=== PATIENT | male | born 1935 | race Caucasian/White ===

== ENCOUNTER 2017-12-22 08:35 | Day surgery (SDC) | payer MEDICARE ==
[~2017-12-22 08:35] MED LIST: Acetaminophen TAB* 325 MG PO PRN; Buffered Lidocaine 0.9% SYRIN* 5 ML/SYR SYRINGE INTRADERM ONE; Midazolam* 1 MG/ML 2 ML VIAL (2 MG) ONE
[2017-12-22 11:36] VITALS: BP 123/70
[2017-12-22] MEDS ORDERED: Povidone Iodine 5% OPTH* 30 ML BTL ONE (11:56)
[2017-12-22] MEDS ORDERED: Ketorolac 0.5% OPHTH (NF) 0.5 % 5 ML BTL ONE (11:56)
[2017-12-22] MEDS ORDERED: Phenylephrine 2.5% OPTH.SOL* 2 ML BTL ONE (11:56)
[2017-12-22] MEDS ORDERED: Lidocaine 2% EPI 1:200000 MPF* 20 ML VIAL ONE (11:56)
[2017-12-22] MEDS ORDERED: acetaZOLAMIDE TAB* 250 MG ONE (11:56)
[2017-12-22] MEDS ORDERED: Lidocaine 1% MPF* 2 ML VIAL ONE (11:56)
[2017-12-22] MEDS ORDERED: Proparacaine 0.5% OPHTH.SOL* 15 ML BTL ONE (11:56)
[2017-12-22] MEDS ORDERED: Neomycin/Polymy/Dex OPTH.SUSP* MAXITROL 0.1% 5 ML ONE (11:56)
[2017-12-22] MEDS ORDERED: Cyclopentolate 1% OPTH.SOL* 2 ML BTL ONE (11:56)
--- NOTE | 2017-12-22 13:11 | OP ---
DATE OF OPERATION: 12/22/2017 - [facility] DATE OF : 1935. SURGEON: Alexis Ferrera M.D. PREOPERATIVE DIAGNOSIS: Cataract right eye. POSTOPERATIVE DIAGNOSIS: Cataract right eye. OPERATIVE PROCEDURE: Extracapsular cataract extraction with intraocular lens implant right eye. DESCRIPTION OF PROCEDURE: The patient was brought to the operating room after being given 1/2% Alcaine with epinephrine drops in the preoperative area. The eye was prepped and draped in the usual sterile fashion. Sterile drape and eyelid speculum were placed. Again, topical 1/2% Alcaine with epinephrine was given. A paracentesis incision was made at the 9 o'clock position with the No.75 blade. Clear cornea incision 2.2 x 2.2-mm was created at the 12 o'clock position starting at the anterior limbus using the 2.2-mm keratome. The anterior chamber was irrigated with 0.4 mL of 1% non-preservative intracameral lidocaine and filled with DisCoVisc. A capsulorrhexis was completed using the cystotome and the Utrata forceps. Hydrodissection was performed with balanced salt solution. The lens nucleus was removed with the Phacoemulsification handpiece without incident. Cortex was removed with the irrigation-aspiration handpiece. The capsular bag was re-inflated using DisCoVisc and an SN60WF 18.5 implant was inserted with the shooter. The irrigation-aspiration handpiece was used to remove all residual DisCoVisc. The eye was refilled with balanced salt solution and the wound checked and found to be watertight. Topical Maxitrol drops were given. [id number]/[facility] #: [id number] [facility]
== END 2017-12-22 11:33 | disposition home or self-care (01) ==
LOC: OREAST 08:35
PROVIDERS: ATTEND Specialist
DX: H25.11 Age-related nuclear cataract, right eye (principal); H04.123 Dry eye syndrome of bilateral lacrimal glands; H40.131 Pigmentary glaucoma, right eye; I48.91 Unspecified atrial fibrillation; Z79.01 Long term (current) use of anticoagulants; Z87.891 Personal history of nicotine dependence
CPT/HCPCS: A9270-GY; J2250; V2632

== ENCOUNTER 2017-12-29 09:00 | Day surgery (SDC) | payer MEDICARE ==
[~2017-12-29 09:00] MED LIST changes: -Acetaminophen TAB* 325 MG PO PRN; +Cyclopentolate 1% OPTH.SOL* 2 ML BTL ONE; +Ketorolac 0.5% OPHTH (NF) 0.5 % 5 ML BTL ONE; +Lidocaine 1% MPF* 2 ML VIAL ONE; +Lidocaine 2% EPI 1:200000 MPF* 20 ML VIAL ONE; -Midazolam* 1 MG/ML 2 ML VIAL (2 MG) ONE; +Neomycin/Polymy/Dex OPTH.SUSP* MAXITROL 0.1% 5 ML ONE; +Phenylephrine 2.5% OPTH.SOL* 2 ML BTL ONE; +Povidone Iodine 5% OPTH* 30 ML BTL ONE; +Proparacaine 0.5% OPHTH.SOL* 15 ML BTL ONE; +acetaZOLAMIDE TAB* 250 MG ONE
[2017-12-29] MEDS ORDERED: Midazolam* 1 MG/ML 2 ML VIAL (2 MG) ONE (10:58)
[2017-12-29 11:37] VITALS: BP 120/78
--- NOTE | 2017-12-29 12:18 | OP ---
DATE OF OPERATION: 12/29/2017 - [facility] DATE OF : 1935. SURGEON: Alexis Ferrera M.D. PREOPERATIVE DIAGNOSIS: Cataract left eye. POSTOPERATIVE DIAGNOSIS: Cataract left eye. OPERATIVE PROCEDURE: Extracapsular cataract extraction with intraocular lens implant left eye. DESCRIPTION OF PROCEDURE: The patient was brought to the operating room after being given 1/2% Alcaine with epinephrine drops in the preoperative area. The eye was prepped and draped in the usual sterile fashion. Sterile drape and eyelid speculum were placed. Again, topical 1/2% Alcaine with epinephrine was given. A paracentesis incision was made at the 3 o'clock position with the No.75 blade. Clear cornea incision 2.2 x 2.2-mm was created at the 6 o'clock position starting at the anterior limbus using the 2.2-mm keratome. The anterior chamber was irrigated with 0.4 mL of 1% non-preservative intracameral lidocaine and filled with DisCoVisc. A capsulorrhexis was completed using the cystotome and the Utrata forceps. Hydrodissection was performed with balanced salt solution. The lens nucleus was removed with the Phacoemulsification handpiece without incident. Cortex was removed with the irrigation-aspiration handpiece. The capsular bag was re-inflated using DisCoVisc and an SN60WF 18.5 implant was inserted with the shooter. The irrigation-aspiration handpiece was used to remove all residual DisCoVisc. The eye was refilled with balanced salt solution and the wound checked and found to be watertight. Topical Maxitrol drops were given. [id number]/[facility] #: [id number] [facility]
== END 2017-12-29 11:30 | disposition home or self-care (01) ==
LOC: OREAST 09:00
PROVIDERS: ATTEND Specialist
DX: H25.12 Age-related nuclear cataract, left eye (principal); H04.123 Dry eye syndrome of bilateral lacrimal glands; H40.131 Pigmentary glaucoma, right eye; I48.91 Unspecified atrial fibrillation; Z79.01 Long term (current) use of anticoagulants; Z87.891 Personal history of nicotine dependence; M19.90 Unspecified osteoarthritis, unspecified site; I45.10 Unspecified right bundle-branch block
CPT/HCPCS: A9270-GY; J2250; V2632

== ENCOUNTER 2019-02-01 14:48 | Observation (INO) | payer MEDICARE ==
[2019-02-01 15:33] LABS: ABS Basophils 0.1 10^3/ul (0-0.2); ABS Eosinophils 0.1 10^3/ul (0-0.6); ABS Lymphocytes 1.1 10^3/ul (1.0-4.8); ABS Monocytes 0.6 10^3/ul (0-0.8); ABS Neutrophils 3.8 10^3/ul (1.5-7.7); Eosinophil % 2.4 %; Hematocrit 46 % (42-52); Hemoglobin 15.7 g/dL (14.0-18.0); Lymphocyte % 19.7 %; Mean Corpuscular HGB Conc 34 g/dL (31-36); Mean Corpuscular Hemoglobin 32 pg (27-31); Mean Corpuscular Volume 95 fL (80-94); Mean Platelet Volume 8.8 fL (7.4-10.4); Platelet Count 221 10^3/uL (150-450); Red Blood Count 4.89 10^6 /uL (4.18-5.48); Red Cell Distribution Width 13 % (10.5-15); White Blood Count 5.8 10^3/uL (3.5-10.8)
[2019-02-01 16:00] LABS: Albumin 4.2 g/dL (3.2-5.2); Albumin/Globulin Ratio 1.7 (1-3); BUN/Creatinine Ratio 17.1 (8-20); Calcium 9.5 mg/dL (8.6-10.3); EGFR African American 76.7 (>60); EGFR Non-African American 63.4 (>60); Globulin 2.5 g/dL (2-4); Potassium 4.5 mmol/L (3.5-5.0); Total Bilirubin 0.4 mg/dL (0.2-1.0); Total Protein 6.7 g/dL (6.4-8.9)
--- NOTE | 2019-02-01 16:49 | ED ---
Dizziness - HPI Summary HPI Summary: An 83 y/o M presents to ED c/o lightheadedness onset 1400. Today, he walked around the block, went home and carried a heavy vacuum up and down stairs, when he felt some intermittent lightheadedness. Associated sx: near-syncope when walking, hypotensive at home, chest discomfort. Denies SOB, nausea, urinary sx, diarrhea, no pedal edema, fever, chills, cough. He takes Prostate medications. He is no longer on Eliquis. PMHx: intermittent a-flutter, cardioverted 2x. No past ablations. Patient returned from [place] in November. 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 neg: urinary sx, pedal edema, cough. Negative: Nausea, Diarrhea, SOB, Fever, Chills - Allergies/Home Medications Allergies/Adverse Reactions: Allergies Allergy/AdvReac Type Severity Reaction Status Date / Time No Known Allergies Allergy Verified 02/01/19 14:54 Home Medications: Home Medications Finasteride TAB* [Proscar TAB*] 5 mg PO QPM 02/01/19 [History Confirmed 02/01/19 ] Saw/Vit E/Sod Rose/Lyc/Beta/Pyg [Complete Prostate Health] 1 tab PO QAM 02/01/19 [History Confirmed 02/01/19] Tamsulosin CAP* [Flomax CAP*] 0.4 mg PO QPM 02/01/19 [History Confirmed 02/01/19 ] PMH/Surg Hx/FS Hx/Imm Hx Previously Healthy: No Endocrine/Hematology History: Denies: Hx Diabetes, Hx Anemia Cardiovascular History: Reports: Hx Angina, Other Cardiovascular Problems/ Disorders - right bundle branch block Denies: Hx Auto Implanted Cardiovert Defib, Hx Cardiac Arrest, Hx Coronary Artery Disease, Hx Hypercholesterolemia, Hx Hypertension, Hx Myocardial Infarction, Hx Valvular Heart Disease Respiratory History: Denies: Hx Asthma, Hx Chronic Obstructive Pulmonary Disease (COPD), Other Respiratory Problems/Disorders GI History: Denies: Hx Jaundice, Other GI Disorders History: Reports: Other Problems/Disorders - Enlarged prostate Musculoskeletal History: Reports: Hx Arthritis - wrists Denies: Other Musculoskeletal History Sensory History: Reports: Hx Cataracts - Bilateral, Hx Contacts or Glasses, Hx Hearing Aid, Hx Hearing Problem Opthamlomology History: Reports: Hx Cataracts - Bilateral, Hx Contacts or Glasses Neurological History: Denies: Hx Headaches, Hx Seizures, Other Neuro Impairments/Disorders - Surgical History Surgery Procedure, Year, and Place: Fractured nose age 13, used anesthesia to reset Hx Anesthesia Reactions: No Infectious Disease History: No Infectious Disease History: Reports: Hx Shingles Denies: History Other Infectious Disease, Traveled Outside the [place] in Last 30 Days - Family History Known Family History: Positive: Diabetes - Mother Family History: FHx of brain tumor (Brother) - Social History Occupation: Retired Lives: With Family Alcohol Use: Daily Alcohol Amount: 1 beer Hx Substance Use: No Substance Use Type: Reports: None Hx Tobacco Use: Yes Smoking Status (MU): Former Smoker Type: Pipe Review of Systems Negative: Fever, Chills Positive: Chest Pain - "discomfort", Other - pos: hypotensive Negative: Shortness Of Breath, Cough Negative: Diarrhea, Nausea Negative: other - neg: urinary sx Negative: Edema Neurological: Other - pos: lightheadedness Positive: Syncope - "near-syncope" All Other Systems Reviewed And Are Negative: Yes Physical Exam - Summary Physical Exam Summary: Constitutional: Well-developed, Well-nourished, Alert. (-) Distressed Skin: Warm, Dry HENT: Normocephalic; Atraumatic Eyes: Conjunctiva normal Neck: Musculoskeletal ROM normal neck. (-) JVD, (-) Stridor, (-) Tracheal deviation Cardio: Rhythm regular, rate normal, Heart sounds normal; Intact distal pulses; The pedal pulses are 2+ and symmetric. Radial pulses are 2+ and symmetric. (-) Murmur Pulmonary/Chest wall: Effort normal. (-) Respiratory distress, (-) Wheezes, (-) Rales Abd: Soft, (-) tenderness, (-) Distension, (-) Guarding, (-) Rebound Musculoskeletal: Pitting edema: 1+ in RLE, 2+ in LLE going approx 1/3 up leg. Lymph: (-) Cervical adenopathy Neuro: Alert, Oriented x3 Psych: Mood and affect Normal Triage Information Reviewed: Yes Vital Signs On Initial Exam: Initial Vitals Temp Pulse Resp BP Pulse Ox 97 F 65 16 97/60 97 02/01/19 14:51 02/01/19 14:51 02/01/19 14:51 02/01/19 14:51 02/01/19 14:51 Vital Signs Reviewed: Yes Diagnostics - Vital Signs Vital Signs Temp Pulse Resp BP Pulse Ox 02/01/19 16:36 98 F 68 16 85/55 97 02/01/19 14:51 97 F 65 16 97/60 97 - Laboratory Lab Results: Lab Results 02/01/19 02/01/19 02/01/19 Range/Units 15:25 15:25 15:25 WBC 5.8 (3.5-10.8) 10^3/uL RBC 4.89 (4.18-5.48) 10^6 /uL Hgb 15.7 (14.0-18.0) g/dL Hct 46 (42-52) % MCV 95 H (80-94) fL MCH 32 H (27-31) pg MCHC 34 (31-36) g/dL RDW 13 (10.5-15) % Plt Count 221 (150-450) 10^3/uL MPV 8.8 (7.4-10.4) fL Neut % (Auto) 66.8 % Lymph % (Auto) 19.7 % Blair % (Auto) 10.1 % Eos % (Auto) 2.4 % Baso % (Auto) 1.0 % Absolute Neuts (auto) 3.8 (1.5-7.7) 10^3/ul Absolute Lymphs (auto) 1.1 (1.0-4.8) 10^3/ul Absolute Monos (auto) 0.6 (0-0.8) 10^3/ul Absolute Eos (auto) 0.1 (0-0.6) 10^3/ul Absolute Basos (auto) 0.1 (0-0.2) 10^3/ul Absolute Nucleated RBC 0.0 10^3/ul Nucleated RBC % 0.0 Sodium 138 (135-145) mmol/L Potassium 4.5 (3.5-5.0) mmol/L Chloride 106 (101-111) mmol/L Carbon Dioxide 27 (22-32) mmol/L Anion Gap 5 (2-11) mmol/L BUN 19 (6-24) mg/dL Creatinine 1.11 (0.67-1.17) mg/dL Est GFR ( Amer) 76.7 (>60) Est GFR (Non-Af Amer) 63.4 (>60) BUN/Creatinine Ratio 17.1 (8-20) Glucose 100 (70-100) mg/dL Lactic Acid 0.8 (0.5-2.0) mmol/L Calcium 9.5 (8.6-10.3) mg/dL Total Bilirubin 0.40 (0.2-1.0) mg/dL AST 25 (13-39) U/L ALT 16 (7-52) U/L Alkaline Phosphatase 54 (34-104) U/L Troponin I 0.00 (<0.04) ng/mL Total Protein 6.7 (6.4-8.9) g/dL Albumin 4.2 (3.2-5.2) g/dL Globulin 2.5 (2-4) g/dL Albumin/Globulin Ratio 1.7 (1-3) Result Diagrams: 02/01/19 15:25 02/01/19 15:25 Lab Statement: Any lab studies that have been ordered have been reviewed, and results considered in the medical decision making process. - Ultrasound No standard instances Ultrasound Interpretation Completed By: Radiologist Summary of Ultrasound Findings: VENOUS DOPPLER US IMPRESSION: 1. No acute findings. No evidence of deep vein thrombosis as above. 2. Limited visualization of right peroneal vein due to possible vascular. tortuosity. ED provider has reviewed this report. - EKG 6448 Summary of EKG Findings: A-fib/flutter at 57 bpm. QRS prolonged, RBBB. Changed from EKG on 07/01/16. Dizzy Course/Dx - Course Course Of Treatment: Patient is an 83 y/o M presenting with lightheadedness and hypotension onset 1400, after mild exertion. Associated sx: near-syncope and chest discomfort. PE finds pitting edema: 1+ in RLE, 2+ in LLE going approx 1/ 3 up leg. Lab work is without significant abnormality. EKG shows A-fib/flutter at 57 bpm. QRS prolonged, RBBB. Changed from EKG on 07/01/16. VENOUS DOPPLER US shows "1. No acute findings. No evidence of deep vein thrombosis as above. 2. Limited visualization of right peroneal vein due to possible vascular tortuosity.". Consulted with Dr. Strong, hospitalist, who will admit patient. - Diagnoses Provider Diagnoses: Pre-syncope, Atrial fibrillation/flutter, Hypotension - Provider Notifications Discussed Care Of Patient With: Onelia Strong - hospitalist Time Discussed With Above Provider: 17:38 Instructed by Provider To: Admit As Inpatient Discharge - Sign-Out/Discharge Documenting (check all that apply): Patient Departure - ADMIT Patient Received Moderate/Deep Sedation with Procedure: No - Discharge Plan Condition: Stable Disposition: ADMITTED TO [facility] Referrals: Dandre Du MD [Primary Care Provider] - - Billing Disposition and Condition Condition: STABLE Disposition: Admitted to [facility] - Attestation Statements Document Initiated by Scribe: Yes Documenting Scribe: Jt Tariq Provider For Whom Scribe is Documenting (Include Credential): Dr. Arleth Patel MD Scribe Attestation: I, Jt Tariq, richardibed for Dr. Arleth Patel MD on at 1847. Scribe Documentation Reviewed: Yes Provider Attestation: The documentation as recorded by the Jt johansen accurately reflects the service I personally performed and the decisions made by me, Dr. Arleth Patel MD Status of Scribe Document: Viewed
[2019-02-01] MEDS ORDERED: NS 0.9% 500 ML* 500 ML IV ONE (17:39)
[2019-02-01] MEDS ORDERED: Al Hydrox/Mg Hydrox/Simet LIQ* 30 ML UDC PO PRN (18:43)
[2019-02-01] MEDS ORDERED: Acetaminophen TAB* 325 MG PO PRN (18:43)
[2019-02-01] MEDS ORDERED: Ondansetron INJ* 2 MG/ML VIAL IV PRN (18:43)
[2019-02-01] MEDS ORDERED: NS 0.9% 1000 ML** 1,000 ML IV ONE (19:06)
[2019-02-01] MEDS: Apixaban* 2.5 MG TAB PO SCH (20:40)
[2019-02-01] MEDS: Multivitamins/Minerals TAB PO SCH (20:40)
[2019-02-01 21:07] LABS: Magnesium 2.3 mg/dL (1.9-2.7)
--- NOTE | 2019-02-01 21:15 | HP ---
HISTORY AND PHYSICAL: DATE OF ADMISSION: 02/01/19. ATTENDING PHYSICIAN: Dr. Elkin Alexander* (dictated by MAKI Coyle PRIMARY CARE PROVIDER: Dr. Dandre Du. HONING MACHINE TRY OUT SETTER: Dr. Eulogio Roberts. CHIEF COMPLAINT: Dizziness and hypotension at home. HISTORY OF PRESENT ILLNESS: Lionel Orozco is an 83-year-old white male with past medical history of right bundle-branch block; BPH; atrial flutter, status post cardioversion in 2016 to normal sinus rhythm, not on anticoagulation, who presents to the emergency department with complaints of dizziness and hypotension. The patient was experiencing lightheadedness when standing up. At home, he checked his blood pressure and his blood pressure was approximately 90-80/60-50. He called Dr. Du's office who suggested he go to the emergency department. The patient was found to be in atrial flutter at time of evaluation in the emergency department. The patient was last seen by Dr. Roberts' s office in December 2018. At this time, his EKG demonstrated normal sinus rhythm with right bundle-branch block. One month prior to this, the patient was in urgent care in [place] and had an episode of paroxysmal atrial flutter associated with hypotension. The patient reports that when a repeat EKG was taken at this urgent care, he was then later in normal sinus rhythm and allowed to go home. The patient has not been taking Eliquis for at least 1 year. The patient has not been experiencing chest pain, but did note an "odd feeling" in his chest at home. He describes his dizziness as a lightheadedness and did not experience syncopal event. He did not experience shortness of breath, visual changes, headache. Denies nausea, vomiting, abdominal pain. Additionally, the patient notes that he had a tick bite on 01/28/19 to his abdomen. He removed the tick and he reports the tick only attached for approximately less than 5 hours. He has not noticed a rash. Has not experienced fevers or chills. ED COURSE: In the emergency department, the patient's EKG demonstrated atrial flutter. Vital signs when he arrived to the emergency department were temperature of 97 degrees Fahrenheit, pulse 65 beats per minute, respiratory rate 16, oxygen 97%, blood pressure 97/60, which was later 84/45, the patient was not orthostatic. The patient received 500 mL of normal saline in the emergency department and blood pressure remained low. The hospitalists then were asked to evaluate the patient for admission. PAST MEDICAL HISTORY: 1. Atrial flutter, status post cardioversion in 2016 to normal sinus rhythm, not on anticoagulation. 2. Right bundle-branch block. 3. BPH. 4. CKD stage 2. PAST SURGICAL HISTORY: Bilateral cataract surgeries in 2018. HOME MEDICATIONS: 1. Complete Prostate Health 1 tab p.o. daily. 2. Finasteride 5 mg p.o. daily. 3. Tamsulosin 0.4 mg p.o. daily. 4. Multivitamin 1 tab p.o. b.i.d. 5. Greenfield-3 fatty acid/fish oil 1 cap p.o. daily. 6. Glucosamine chondroitin complex 4 caps a day. 7. Catalyn 1200 units daily. ALLERGIES: No known drug allergies. FAMILY HISTORY: Mother at age 83 of a stroke. She had history of diabetes. Father at age 97 of complications of CHF, father had an [place] at age 50. 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 He is . He used to smoke a pipe approximately a 14-ounce tin per day for 30 years. The patient quit at age 51. He drinks 1 beer per week and denies drug use. Should he need a surrogate medical decision maker, his , Jackie Orozco, would be his surrogate medical decision maker. Her phone number is . REVIEW OF SYSTEMS: An 11-point review of systems was completed. All pertinent positives and negatives are above in the HPI. All other systems are negative. PHYSICAL EXAMINATION GENERAL: A white male, sitting upright in hospital chair in hallway in the emergency department, appearing comfortable and in no acute distress. HEENT: Head: Normocephalic, atraumatic. Eyes: PERRL. Sclerae anicteric. EOMI. ENT: Mucous membranes are moist. NECK: Without JVD. Neck is supple. LUNGS: Clear to auscultation. Chest expansion is symmetrical with respirations. CARDIO: Regular rate. Irregular rhythm consistent with atrial flutter. No murmurs, rubs, or gallops appreciated. ABDOMEN: Normoactive bowel sounds x4 quadrants. Abdomen is soft, nontender, nondistended without masses or hepatosplenomegaly. EXTREMITIES: No edema, clubbing, or cyanosis. NEURO: The patient is alert and oriented x3. Strength is 5/5 in all extremities. No focal deficits. PSYCH: The patient is pleasant and cooperative. SKIN: Skin is warm, dry, and intact. DIAGNOSTIC STUDIES/LAB DATA: EKG on 02/01/19, rate is 57 beats per minute, multiple beats of aflutter with varying ratio, right bundle-branch block evident , which is consistent with bundle-branch block on EKG in 2016. Venous Doppler of bilateral lower extremity veins on 02/01/19, impression: No acute findings, no evidence of deep vein thrombosis, limited visualization of right peroneal vein due to possible vascular tortuosity. White blood cells 5.8, hemoglobin 15.7, hematocrit 46, platelet count 221. Sodium 138, potassium 4.5, chloride 106, CO2 27, BUN 19, creatinine 1.11, glucose 100. Troponin 0.00. Lactic acid 0.8. ASSESSMENT AND PLAN: Lionel Orozco is an 83-year-old male with past medical history of right bundle-branch block; benign prostatic hyperplasia; atrial flutter, status post cardioversion in 2016, not on anticoagulation, who presents to the emergency department experiencing dizziness and hypotension at home. The patient will be admitted in observation for: 1. Atrial flutter. The patient has a history of atrial flutter. When he was last seen by Dr. Roberts in December 2018, his EKG demonstrated normal sinus rhythm. However, the patient did have an episode of atrial flutter at an urgent care in [place] in November 2018 according to the patient. We do not have records from this. The patient does have associated hypotension likely due to atrial flutter , though possibly due to fluid status. However, BUN to creatinine ratio is not consistent with dehydration. The patient has received 500 mL of normal saline in the emergency department with minimal improvement of blood pressure. I will give an additional 1000 mL bolus and continue maintenance fluids. I will restart the patient's Eliquis now at dose of 2.5 mg b.i.d. due to the patient's age over [address]. [address] Lowery was made aware of this patient and the patient will be admitted on telemetry. His potassium is above 4 and I will check his magnesium and TSH. In addition, a chest x-ray has been ordered and transthoracic echo. The patient has been ordered a heart-healthy diet without caffeine. His troponin has been negative to 0.00 and we will continue to trend this. The ED provider was concerned for lower extremity edema and ordered venous Dopplers. On my evaluation, there is no lower extremity edema and the report of the venous Doppler demonstrates no DVT but there is some vascular tortuosity. 2. Chronic kidney disease stage 2. The patient has a creatinine of 1.1 today. This appears to be at baseline. We will continue to monitor this with BMP. 3. Benign prostatic hyperplasia. Continue the patient's home finasteride and tamsulosin. The patient takes multiple non-formulary medications for this, which will not be continued due to lack of availability in the hospital. 4. Tick bite. Because the tick was attached for less than 36 hours, prophylactic therapy is not indicated. The patient was advised to monitor skin for classic bulls eye rash, fever/chills, and any new joint pain. 5. Code status: The patient is full code. 6. DVT prophylaxis: The patient has been restarted on Eliquis. TIME SPENT: Approximately 55 minutes was spent on this admission, approximately half of the time was spent at bedside. This case has been reviewed by attending, Dr. Elkin Alexander, and he agrees with this assessment and plan of care. MAKI COYLE [id number]/[facility] #: [id number] [facility]
[2019-02-01] MEDS: NS 0.9% 1000 ML** 1,000 ML IV SCH (23:42)
[2019-02-02 06:23] LABS: ABS Eosinophils 0.2 10^3/ul (0-0.6); ABS Lymphocytes 1.2 10^3/ul (1.0-4.8); ABS Monocytes 0.6 10^3/ul (0-0.8); ABS Neutrophils 2.8 10^3/ul (1.5-7.7); Eosinophil % 4.9 %; Hematocrit 41 % (42-52); Hemoglobin 13.7 g/dL (14.0-18.0); Lymphocyte % 24.4 %; Mean Corpuscular HGB Conc 34 g/dL (31-36); Mean Corpuscular Hemoglobin 32 pg (27-31); Mean Corpuscular Volume 94 fL (80-94); Mean Platelet Volume 9.3 fL (7.4-10.4); Nucleated Red Blood Cells % 0.1; Platelet Count 195 10^3/uL (150-450); Red Blood Count 4.34 10^6 /uL (4.18-5.48); Red Cell Distribution Width 13 % (10.5-15); White Blood Count 4.7 10^3/uL (3.5-10.8)
[2019-02-02 06:33] LABS: BUN/Creatinine Ratio 17.6 (8-20); Calcium 8.3 mg/dL (8.6-10.3); EGFR African American 84.6 (>60); EGFR Non-African American 69.9 (>60)
[2019-02-02 06:53] LABS: TSH (Thyroid Stimulating Horm) 2.91 mcIU/mL (0.34-5.60)
--- NOTE | 2019-02-02 08:28 | PN ---
Subjective - Subjective Reason for Note: Discharge Note History: Discharge summary Grant Orozco told me the story of his presentation and I supplemented that with MAKI Coyle's admitting history and physical. He had an episode of spontaneous atrial flutter with hypotension. He has had this before. He is now back in sinus rhythm and feeling much better. He is unaware of any triggers - he had been for a vigorous walk with a hill and had lifted a heavy vacuum cleaner and trimmer. No intercurrent illnesses/new medication. He denies chest pain, dyspnea, he had minor edema. He feels fine this morning. Active Problems: Active Problems 1st degree AV block (Acute) I44.0 Atrial flutter (Acute) I48.92 Hypotension (Acute) RBBB (Acute) I45.10 BPH (benign prostatic hyperplasia) (Chronic) N40.0 Stage 2 chronic kidney disease (Chronic) N18.2 Current Medications: Current Medications Acetaminophen (Tylenol Tab*) 650 mg PO Q4H PRN PRN Reason: FEVER/PAIN Al Hydrox/Mg Hydrox/Simethicone (Maalox Plus*) 30 ml PO Q6H PRN PRN Reason: INDIGESTION Apixaban (Eliquis*) 2.5 mg PO BID [facility] Last Admin: 02/01/19 20:40 Dose: 2.5 mg Finasteride (Proscar Tab*) 5 mg PO QPM [facility] Fish Oil (Fish Oil (Nf)) 1,000 mg PO QPM [facility]; Protocol Sodium Chloride (Ns 0.9% 1000 Ml) 1,000 mls @ 100 mls/hr IV PER RATE [facility] Last Admin: 02/01/19 23:42 Dose: 100 mls/hr Multivitamins/Minerals (Theragran/Minerals Tab*) 1 tab PO BID [facility] Last Admin: 02/01/19 20:40 Dose: 1 tab Ondansetron HCl (Zofran Inj*) 4 mg IV Q4H PRN PRN Reason: NAUSEA/VOMITING Tamsulosin HCl (Flomax Cap*) 0.4 mg PO QPM [facility] Home Medications: Home Medications Medication Instructions Recorded Confirmed Type Multivitamins/Minerals TAB* 1 tab PO BID 06/30/16 02/01/19 History [Theragran/minerals TAB*] [place]-3 Fatty Acids/Fish Oil [Fish 1 cap PO QPM 12/15/17 02/01/19 History Oil 1,000 mg Capsule] Finasteride TAB* [Proscar TAB*] 5 mg PO QPM 02/01/19 02/01/19 History Glucosam/Chondr/Collagn/Hyalur [Th 4 cap PO DAILY 02/01/19 02/01/19 History Glucosamine/Chondroiti] Non Formulary Respiratory Med [Non 1,200 units PO DAILY 02/01/19 02/01/19 History Formulary Respiratory Med(Nf)] Saw/Vit E/Sod Rose/Lyc/Beta/Pyg 1 tab PO QAM 02/01/19 02/01/19 History [Complete Prostate Health] Tamsulosin CAP* [Flomax CAP*] 0.4 mg PO QPM 02/01/19 02/01/19 History Allergies: Allergies Allergy/AdvReac Type Severity Reaction Status Date / Time No Known Allergies Allergy Verified 02/01/19 14:54 Objective - Vital Signs Vital Signs: Vital Signs 02/01/19 02/01/19 02/01/19 14:51 16:36 17:00 Temperature 97 F 98 F Pulse Rate 65 68 64 Respiratory 16 16 Rate Blood Pressure 97/60 85/55 84/45 (mmHg) O2 Sat by Pulse 97 97 97 Oximetry 02/01/19 02/01/19 02/01/19 17:19 17:20 17:21 Temperature Pulse Rate 79 57 79 Respiratory Rate Blood Pressure 97/55 91/58 97/55 (mmHg) O2 Sat by Pulse Oximetry 02/01/19 02/01/19 02/01/19 19:26 20:00 20:11 Temperature 97.5 F 97 F Pulse Rate 49 46 Respiratory 20 20 16 Rate Blood Pressure 98/49 86/55 (mmHg) O2 Sat by Pulse 99 97 Oximetry 02/01/19 02/01/19 02/01/19 20:19 20:43 20:54 Temperature 97.5 F Pulse Rate 49 49 67 Respiratory 20 Rate Blood Pressure 98/49 97/61 96/59 (mmHg) O2 Sat by Pulse 99 98 Oximetry 02/02/19 02/02/19 02/02/19 00:34 04:00 07:36 Temperature 98.1 F 97.7 F Pulse Rate 56 77 Respiratory 16 16 16 Rate Blood Pressure 100/52 102/66 (mmHg) O2 Sat by Pulse 96 98 Oximetry - Intake and Output Intake and Output: Intake & Output 01/30/19 01/31/19 02/01/19 02/02/19 11:59 11:59 11:59 11:59 Intake Total 1999 Balance 1999 Weight 190 lb 3.2 oz Intake: IV Fluids 1999 NS (0.9%) 1000 Oral 0 ADLs: Meal Record Start: 02/01/19 19: 26 Freq: DAILY@0900,1400,1800 Status: Active Protocol: Created 02/01/19 19:26 System (Rec: 02/01/19 19:26 System [id number]) Intake and Output Start: 02/01/19 14: 55 Freq: Status: Active Protocol: Created 02/01/19 14:55 System (Rec: 02/01/19 14:55 System [id number]) Intake and Output Start: 02/01/19 19: 26 Freq: DAILY@0600,1400,2200 Status: Active Protocol: Created 02/01/19 19:26 System (Rec: 02/01/19 19:26 System [id number]) Document 02/01/19 21:42 [id number] (Rec: 02/01/19 21:43 [id number]) Document 02/02/19 06:00 [id number] (Rec: 02/02/19 07:40 [id number]) - Physical Exam General Physical Exam Comment: He is warm and well perfused and hemodynamically stable General: No Cyanosis Lungs and Chest: Yes: Chest Expansion Full, Chest Expansion Symetrica, Percussion Note Resonant, Vessicular Breath Sounds. No: Crackles, Wheezes, Respiratory Distress, Use of Accessory Muscles Heart Rate and Rhythm: Regular JVP: Not Elevated Additional Cardiovascular: Yes: Normal Heart Sounds. No: Heart Murmur, Pedal Edema Abdominal Exam: Yes: Soft, Bowel Sounds Present. No: Distention, Abdominal Mass , Abdominal Tenderness - Extremities Cranial Nerves II-XII Intact: Yes Limbs: Normal Power, Normal Tone, Normal Coordination - Neuro Orientation: A/O x3 Speech: Normal Results - Results Lab Results: Laboratory Results - last 24 hr 02/01/19 02/01/19 02/01/19 15:25 15:25 15:25 WBC 5.8 RBC 4.89 Hgb 15.7 Hct 46 MCV 95 H MCH 32 H MCHC 34 RDW 13 Plt Count 221 MPV 8.8 Neut % (Auto) 66.8 Lymph % (Auto) 19.7 [place] % (Auto) 10.1 Eos % (Auto) 2.4 Baso % (Auto) 1.0 Absolute Neuts (auto) 3.8 Absolute Lymphs (auto) 1.1 Absolute Monos (auto) 0.6 Absolute Eos (auto) 0.1 Absolute Basos (auto) 0.1 Absolute Nucleated RBC 0.0 Nucleated RBC % 0.0 Sodium 138 Potassium 4.5 Chloride 106 Carbon Dioxide 27 Anion Gap 5 BUN 19 Creatinine 1.11 Est GFR ( Amer) 76.7 Est GFR (Non-Af Amer) 63.4 BUN/Creatinine Ratio 17.1 Glucose 100 Lactic Acid 0.8 Calcium 9.5 Magnesium 2.3 Total Bilirubin 0.40 AST 25 ALT 16 Alkaline Phosphatase 54 Troponin I 0.00 Total Protein 6.7 Albumin 4.2 Globulin 2.5 Albumin/Globulin Ratio 1.7 TSH 02/01/19 02/01/19 02/02/19 18:11 21:10 00:17 WBC RBC Hgb Hct MCV MCH MCHC RDW Plt Count MPV Neut % (Auto) Lymph % (Auto) [place] % (Auto) Eos % (Auto) Baso % (Auto) Absolute Neuts (auto) Absolute Lymphs (auto) Absolute Monos (auto) Absolute Eos (auto) Absolute Basos (auto) Absolute Nucleated RBC Nucleated RBC % Sodium Potassium Chloride Carbon Dioxide Anion Gap BUN Creatinine Est GFR ( Amer) Est GFR (Non-Af Amer) BUN/Creatinine Ratio Glucose Lactic Acid Calcium Magnesium Total Bilirubin AST ALT Alkaline Phosphatase Troponin I 0.01 0.01 0.00 Total Protein Albumin Globulin Albumin/Globulin Ratio [facility] 02/02/19 02/02/19 05:40 05:40 WBC 4.7 RBC 4.34 Hgb 13.7 L Hct 41 L MCV 94 MCH 32 H MCHC 34 RDW 13 Plt Count 195 MPV 9.3 Neut % (Auto) 58.5 Lymph % (Auto) 24.4 [place] % (Auto) 11.7 Eos % (Auto) 4.9 Baso % (Auto) 0.5 Absolute Neuts (auto) 2.8 Absolute Lymphs (auto) 1.2 Absolute Monos (auto) 0.6 Absolute Eos (auto) 0.2 Absolute Basos (auto) 0.0 Absolute Nucleated RBC 0.0 Nucleated RBC % 0.1 Sodium 139 Potassium 4.0 Chloride 110 Carbon Dioxide 25 Anion Gap 4 BUN 18 Creatinine 1.02 Est GFR ( Amer) 84.6 Est GFR (Non-Af Amer) 69.9 BUN/Creatinine Ratio 17.6 Glucose 84 Lactic Acid Calcium 8.3 L Magnesium 2.0 Total Bilirubin AST ALT Alkaline Phosphatase Troponin I Total Protein Albumin Globulin Albumin/Globulin Ratio TSH 2.91 Radiology Results: Patient Name: GRANT OROZCO Medical Record#: [id number] Ordering Physician: Onelia Strong MD Acct.#: [id number] : 1935 Age: 83 Sex: M Location: [address] [place] [address]/TELEMETRY Exam Date: 02/01/191741 ADM Status: ADM Jenn Order Information: CHEST PA & LAT 2 VWS Accession Number: [id number] CPT: 82782 INDICATION: Dizziness. COMPARISON: Comparison is made with a prior chest x-ray study from June 30, 2016. TECHNIQUE: Dual-energy PA and lateral views of the chest were obtained. FINDINGS: The heart is within normal limits in size. Mediastinal and hilar contours appear within normal limits. The lungs are clear. No pleural effusion is present. IMPRESSION: NO EVIDENCE FOR ACTIVE CARDIOPULMONARY DISEASE. R1NF Preliminary Imaging Read R1NF <Electronically signed by Simone Locke MD in OV> 02/02/19724 Dictated By: Simone Locke MD Dictated Date/Time: 02/02/19724 Transcribed Date/Time: 02/02/19723 Copy to: CC:Dandre Du MD; Elkin Alexander MD; Onelia Strong MD Imaging - [facility] Imaging - [place] [facility] [address] [address] ph [phone]) ph ([phone]) ph ([phone]) This report is only to be considered final once signed by the Provider(s) as displayed in the "<Electronically Signed by >" field (s). Absence of a signature indicates the report is in a draft status and still needs to be finalized. In the event this document was created by someone other than the signing Provider, the individual initiating the document will be listed in the "Entered by:" or "Dictated by:" weiss. 1 of 1 EKG Report: I inspected his EKGs: 02/01/19 14:57 Atrial fibrillation/flutter 57 440 QRS 36 R=BBB 02/02/19 01:08 sinus bradycardia Rate 55 MT 295 Qtc 431 QRS 38 1st deg AV block and RBBB Assessment - Problem List Assessment: Patient Problems 1st degree AV block (Acute) Atrial flutter (Acute) Hypotension (Acute) RBBB (Acute) BPH (benign prostatic hyperplasia) (Chronic) Stage 2 chronic kidney disease (Chronic) Plan: 1st degree AV block (Acute)Atrial flutter (Acute)Hypotension (Acute)RBBB (Acute ) He has had a second episode of atrial flutter with hypotension. He has spontaneously returned to sinus rhythm. He is being seen by cardiology. He will require an electrophysiology evaluation for an aberrant pathway ablation. His electrolytes/thyroid panel are fine. I am resuming his eliquis. His tropinin I series is negative. BPH (benign prostatic hyperplasia) (Chronic) inactive Stage 2 chronic kidney disease (Chronic) secondary diagnosis I discussed the above with Grant Orozco and he agrees with the management plan
[2019-02-02] MEDS: Multivitamins/Minerals TAB PO SCH (09:50)
[2019-02-02] MEDS: NS 0.9% 1000 ML** 1,000 ML IV SCH (09:50)
[2019-02-02] MEDS: Apixaban* 2.5 MG TAB PO SCH (09:50)
--- NOTE | 2019-02-02 12:14 | ECHO ---
*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 History: Atrial flutter, with right bundle branch block. Renal disease. Conclusions Summary: 1. Impressions: The study is unchanged since the study of 07/01/2016. 2. Left ventricle: The cavity size is normal. There is focal basal hypertrophy. Systolic function is normal. The estimated ejection fraction is 55-60%. Wall motion is normal; there are no regional wall motion abnormalities. 3. Right atrium: The atrium is mildly dilated. 4. Mitral valve: There is trivial regurgitation. 5. Tricuspid valve: There is mild regurgitation. Study data: Transthoracic echocardiogram. Procedure: Transthoracic echocardiography was performed. Image quality was good. Complete 2D, spectral Doppler, and color flow Doppler. Location: Bedside. Patient status: Inpatient. Patient room number: 440. Rhythm: Bradycardia. Findings Left ventricle: The cavity size is normal. There is focal septal basal hypertrophy. Systolic function is normal. The estimated ejection fraction is 55-60%. Wall motion is normal; there are no regional wall motion abnormalities. There is no consistent Doppler evidence of clinically significant diastolic dysfunction. Right ventricle: The cavity size is normal. Systolic function is normal. Left atrium: The atrium is normal in size. Right atrium: The atrium is mildly dilated. Mitral valve: The leaflets are mildly thickened. There is trivial regurgitation. The peak diastolic gradient is 3.9 mm Hg. Aortic valve: The valve is trileaflet. The leaflets are normal thickness. There is no evidence of stenosis. There is no significant regurgitation. The ratio of LVOT to aortic valve peak velocity is 0.88. The ratio of LVOT to aortic valve mean velocity is 0.8. The mean systolic gradient is 2.0 mm Hg. The peak systolic gradient is 4.0 mm Hg. Tricuspid valve: The leaflets are normal thickness. There is no evidence of stenosis. There is mild regurgitation. Pulmonic valve: The leaflets are normal thickness. There is no evidence of stenosis. There is trivial regurgitation. The peak systolic gradient is 1.0 mm Hg. Aorta: The aorta is normal. Pericardium: There is no significant pericardial effusion. Pulmonary arteries: Not well visualized. Systemic veins: Inferior vena cava: The vessel is normal in size. The respirophasic diameter changes are in the normal range (>= 50%). Measurements Left ventricle Value Ref Aortic valve Value Ref GUY, LAX (L) 3.9 cm 4.2 - 5.8 Amarilys diam, ED 2.1 cm ---- ESD, LAX (L) 2.4 cm 2.5 - 4.0 Peak v, S 1.01 m/sec ---- FS, LAX 38 % 25 - 43 VTI, S 20.3 cm ---- PW, ED, LAX 1.0 cm 0.6 - 1.0 Mean grad, S 2.0 mm Hg ---- EF 69 % 52 - 72 Peak grad, S 4.0 mm Hg ---- E', lat amarilys, TDI (L) 8.0 cm/sec >=10.0 E/e', lat amarilys, 12 Mitral valve Value Ref TDI Peak E 0.99 m/sec ---- E', med amarilys, TDI 8.8 cm/sec >=7.0 Peak A 0.78 m/sec ---- E/e', med amarilys, 11 Decel time 182 ms ---- TDI Peak grad, D 3.9 mm Hg ---- E', avg, TDI 8.4 cm/sec Peak E/A ratio 1.3 ---- E/e', avg, TDI 12 <=14 Pulmonic valve Value Ref LVOT Value Ref Peak v, S 0.58 m/sec ---- Peak jeremy, S 0.89 m/sec Peak grad, S 1.0 mm Hg ---- Mean grad, S 1 mm Hg Aortic root Value Ref Ventricular septum Value Ref Root diam 3.2 cm <4.2 IVS, ED, LAX (H) 1.4 cm 0.6 - 1.0 Ascending aorta Value Ref Right ventricle Value Ref AAo AP diam, S 3.2 cm ---- GUY, LAX 3.0 cm GUY minor ax, A4C 2.7 cm 1.9 - 3.5 Aortic arch Value Ref mid Arch diam 2.9 cm ---- Left atrium Value Ref Decending aorta Value Ref AP dim, ES 3.90 cm 3.00 - Abena peak jeremy 0.74 m/sec ---- 4.00 ML dim, A4C 4.1 cm Inferior vena cava Value Ref SI dim, A4C 5.6 cm Diam 1.7 cm ---- Vol/bsa, ES, A/L 32 ml/m^2 16 - 34 Right atrium Value Ref SI dim, ES (H) 5.5 cm 3.4 - 5.3 ML dim, ES, A4C (H) 4.6 cm 2.6 - 4.4 Estimated RAP 8 mm Hg Legend: (L) and (H) natalya values outside specified reference range. Prepared and electronically signed by Prosper Ann MD 02/02/2019 12:13
--- NOTE | 2019-02-02 12:46 | CONS ---
Amended report to enter cosigning physician. CONSULTATION REPORT: DATE OF CONSULT: 02/02/19 ATTENDING PHYSICIAN: Dr. Ann, Cardiology* (dictated by Dilia Roy NP) . PRIMARY MILLING MACHINE OPERATOR: Dr. Eulogio Roberts. PRIMARY CARE PHYSICIAN: Dr. Dandre Du. REASON FOR CONSULT: Paroxysmal A-flutter. CHIEF COMPLAINT: Lightheadedness that occurred at 1400 on 02/01/19 HISTORY OF PRESENT ILLNESS: This is a pleasant 83-year-old gentleman with a notable history of paroxysmal A-flutter dating back to 2015 in addition to known right bundle branch block, small patent PFO, stage 2 chronic kidney disease, and BPH. The patient states he has been in his usual state of health. Historically, he would develop an episode of A-flutter approximately once a year dating back to 2015. His initial presentation in June 2016 was with dizziness and palpitations. He was found to be in A-flutter. He underwent successful NERI cardioversion, was placed on Eliquis therapy. He states he was on Eliquis for about a year and it was discontinued at the discretion of his primary room service bellhop Dr. Eulogio Roberts. In 2016, he underwent cardioversion during hospitalization in [place] where he was treated for pneumonia and influenza. Most recently, while in [place] he developed dizziness with a low blood pressure , was found to be in A- flutter. He was sent to [facility] in [place]; however, upon presentation at that institution he had already converted on his own. In December 2018 he was seen in our office by Dr. Roberts and he was in normal sinus rhythm. Yesterday, around 2 p.m., he developed lightheadedness after walking around a block carrying a heavy vacuum. While being evaluated in the emergency department he was noted to be in A-flutter, ventricular rate 57. He converted to normal sinus rhythm at 2051 and has remained in normal sinus rhythm since. He denies syncope, sensation of heart racing, chest pain, pedal edema, or shortness of breath. He states he has been in his usual state health with no recent illness or hospitalization since November 2018 in [place]. He denies exertional symptoms, in fact he works out at the [employer] every Wednesday where he rides a recumbent bike for an hour in duration with no exertional symptoms. The patient denies any bleeding complications on anticoagulant use. Last echocardiogram according to available medical records was via transesophageal echo in 2015. At that time LVF was 55% to 60%. Left atrial size was normal. He had trace tricuspid regurgitation with trace to mild mitral regurgitation. There was a small patent PFO. Last ischemic evaluation was in September 2017 in our office that was "normal" according to the patient. PAST MEDICAL HISTORY: Includes: 1. Right bundle branch block dating back to 1987. 2. Small patent PFO. 3. Paroxysmal A-flutter. 4. BPH. 5. Stage 2 chronic kidney disease. PAST SURGICAL HISTORY: Includes: 1. Prostate biopsy. 2. Cardioversion in June 2016. 3. Cardioversion in 2016. 4. Cataract repair. MEDICATIONS: Home medications includes: 1. Finasteride 5 mg p.o. at bedtime. 2. Flomax 0.4 mg p.o. at bedtime. 3. Multivitamin 1 tablet p.o. b.i.d. 4. Wellborn-3 fatty acid with fish oil 1000 mg daily. 5. Saw/vitamin E/sodium Rose/Lyc/Beta/Pyg 1 tablet a day. ALLERGIES: No known drug allergies. FAMILY HISTORY: Noncontributory. 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 He is and lives at home with his . He was a former tobacco user; however, he quit at the age of 51. He consumes one alcoholic beverage a week. Denies illegal drug use. He stays active, working out at the [employer], riding the recumbent bike for an hour in duration. PHYSICAL EXAM: The patient is sitting in bed upon entering the room. In no apparent distress. Alert and oriented x3. Cooperative with exam. Vital Signs : Temperature 97.2, pulse 56, respirations 16, oxygenation 96% on room air, and blood pressure 108/63. HEENT: Head is atraumatic and normocephalic. Oral mucosa is moist. Tongue is midline. Neck: Supple. Trachea midline. No JVD. No carotid bruits. Cardiac: Normal S1 and S2. Regular rate and rhythm. No murmur, rub, or gallop noted. Lungs are auscultated posteriorly. No evidence of adventitious breath sounds. Respirations are nonlabored. /GI: Abdomen is nontender and nondistended. Normoactive bowel sounds x4. No hepatomegaly to palpation. Extremities: No pedal edema, no clubbing, no cyanosis. Peripheral Vascular: 2+ brachial and dorsalis pedis pulses palpated bilaterally and symmetrically. DIAGNOSTIC STUDIES/LAB DATA: Blood work obtained on 02/02/19: White count 4.7 , hemoglobin 13.7, hematocrit 41, platelets 195. Sodium 139, potassium 4, chloride 110, carbon-dioxide 25, BUN 18, creatinine 1.02, troponin negative x4, TSH 2.91. AST and ALT are normal. ECG initially at presentation demonstrated A-flutter with slow ventricular rate at 57. Post conversion ECG on 02/01/19 at 2259 demonstrated sinus rhythm with known right bundle branch block, rate 61. No ST segment changes. study on 02/01/19: No acute findings. No evidence of DVT per radiology report. Chest x-ray 02/01/19: Per report no evidence of active cardiopulmonary disease. ASSESSMENT AND PLAN: 1. History of paroxysmal atrial flutter dating back to June 2016; CHADS- VASc is 2 given age of 83. Recommend anticoagulation with Eliquis 5 mg p.o. b.i.d. Please note that age is 83, creatinine is less than 1.5, weight is greater than 60 kg, thus he should be on 5 mg p.o. b.i.d. We would not recommend AV mauro agent at this time given history of relative bradycardia. The patient is symptomatic with atrial flutter with dizziness and associated hypotension. I have reviewed with the patient that atrial flutter ablation can be 90% successful. I offered to place referral for outpatient EP evaluation; however, he would like to see Dr. Roberts in followup to further explore options. The patient has had an increased frequency of atrial flutter in the past 4 months with 2 occurrences that were clinically captured on ECG. Historically, he would have episodes occurring once a year. Currently, he is in normal sinus rhythm. There is no evidence of postconduction pauses noted on telemetry. Potassium is normal. TFTs are normal. He states that he has been told in the past that he has a tendency to snore. He will consider outpatient sleep study. 2. History of BPH on Flomax and finasteride therapy; historically followed by Dr. Tang. 3. Long-term use of anticoagulation. I reviewed with the patient the indication for Eliquis due to annual risk of CVA being 2.2% chance. He denies any history of bleeding complications or tendency for bleeding complications. He is agreeable to starting anticoagulant at this time. 4. Disposition. Pending course. 5. The patient is a full code. The patient has a followup appointment on 02/07 at 1:[address] Roberts at our medical office building to further explore possible referral to EP for atrial flutter ablation. Thank you for this kind consultation. Any future questions or concerns, please do not hesitate to contact our service. Dr. Ann has personally seen and examined the patient and agrees with the above assessment and plan. DILIA ROY, ARMANDO [id number]/CPS #: [id number] LUMA
[2019-02-02 12:58] VITALS: BP 122/67
[2019-02-02] MEDS ORDERED: Tamsulosin CAP* 0.4 MG PO SCH (18:00)
[2019-02-02] MEDS ORDERED: CMCS: OMEGA-3 FATTY ACIDS (NF) 1,000 MG CAP PO SCH (18:00)
[2019-02-02] MEDS ORDERED: Finasteride TAB* 5 MG PO SCH (18:00)
[2019-02-02] MEDS ORDERED: Apixaban* 5 MG TAB PO SCH (21:00)
== END 2019-02-02 14:47 | disposition home or self-care (01) ==
LOC: ED 14:48 → MEDTELE 18:43
PROVIDERS: ADMIT Internal Medicine; ATTEND Internal Medicine
DX: I48.92 Unspecified atrial flutter (principal); I45.10 Unspecified right bundle-branch block; N40.0 Benign prostatic hyperplasia without lower urinary tract symptoms; R42 Dizziness and giddiness; N18.2 Chronic kidney disease, stage 2 (mild); I95.9 Hypotension, unspecified; Z98.890 Other specified postprocedural states; R07.9 Chest pain, unspecified; Z87.891 Personal history of nicotine dependence; R55 Syncope and collapse; Z79.01 Long term (current) use of anticoagulants
CPT/HCPCS: 36415; 71046; 80048; 80053; 83605; 83735; 84443; 84484; 85025; 93005; 93306; 93970; 96360; 96361; 99283; A9270-GY; G0378

== ENCOUNTER 2019-07-10 09:20 | Observation (INO) | payer MEDICARE ==
[2019-07-10 09:55] LABS: ABS Eosinophils 0.2 10^3/ul (0-0.6); ABS Lymphocytes 0.8 10^3/ul (1.0-4.8); ABS Monocytes 0.6 10^3/ul (0-0.8); ABS Neutrophils 3.1 10^3/ul (1.5-7.7); Hematocrit 44 % (42-52); Hemoglobin 15.1 g/dL (14.0-18.0); Lymphocyte % 17.3 %; Mean Corpuscular HGB Conc 34 g/dL (31-36); Mean Corpuscular Hemoglobin 32 pg (27-31); Mean Corpuscular Volume 95 fL (80-94); Mean Platelet Volume 8.8 fL (7.4-10.4); Nucleated Red Blood Cells % 0.2; Platelet Count 202 10^3/uL (150-450); Red Blood Count 4.66 10^6 /uL (4.18-5.48); Red Cell Distribution Width 13 % (10-15); White Blood Count 4.8 10^3/uL (3.5-10.8)
[2019-07-10] MEDS ORDERED: Lactated Ringers 1000 ML Bag* 1,000 ML IV ONE (10:00)
--- NOTE | 2019-07-10 10:07 | ED ---
Dizziness - HPI Summary HPI Summary: Pt is an 84 y/o M presenting to the ED with a chief complaint of dizziness initially onset sometime during the night. Pt states he woke up with dizziness and lightheadedness but went back to sleep. He was on Eliquis but stopped taking it d/t pacemaker placement scheduled for tomorrow. He had an episode about 3 weeks ago in [place] where his HR was in the 30s. He had some water about an hour [employer], but no food. He denies CP or SOB. - History Of Current Complaint Chief Complaint: EDDysrhythmPalp Stated Complaint: DIZZY/LOW BLOOD PRESSURE/ATRIAL FLUTTER PER PT Time Seen by Provider: 07/10/19 09:31 Hx Obtained From: Patient Onset/Duration: Still Present, Suddenly Timing: Hours Severity Initially: Moderate Severity Currently: Moderate Aggravating Factor(s): Nothing Alleviating Factor(s): Nothing Associated Signs And Symptoms: Positive: Palpitations. Negative: Chest Pain, SOB - Allergies/Home Medications Allergies/Adverse Reactions: Allergies Allergy/AdvReac Type Severity Reaction Status Date / Time No Known Allergies Allergy Verified 07/10/19 09:43 PMH/Surg Hx/FS Hx/Imm Hx Previously Healthy: Yes Endocrine/Hematology History: Denies: Hx Diabetes, Hx Anemia Cardiovascular History: Reports: Hx Angina, Hx Hypotension, Hx Syncope, Other Cardiovascular Problems/Disorders - right bundle branch block Denies: Hx Auto Implanted Cardiovert Defib, Hx Cardiac Arrest, Hx Coronary Artery Disease, Hx Hypercholesterolemia, Hx Hypertension, Hx Myocardial Infarction, Hx Valvular Heart Disease Respiratory History: Denies: Hx Asthma, Hx Chronic Obstructive Pulmonary Disease (COPD), Other Respiratory Problems/Disorders GI History: Denies: Hx Jaundice, Other GI Disorders History: Reports: Other Problems/Disorders - Enlarged prostate Musculoskeletal History: Reports: Hx Arthritis - wrists Denies: Other Musculoskeletal History Sensory History: Reports: Hx Cataracts - Bilateral, Hx Contacts or Glasses, Hx Hearing Aid, Hx Hearing Problem Opthamlomology History: Reports: Hx Cataracts - Bilateral, Hx Contacts or Glasses Neurological History: Denies: Hx Headaches, Hx Seizures, Other Neuro Impairments/Disorders - Surgical History Surgery Procedure, Year, and Place: Fractured nose age 13, used anesthesia to reset Hx Anesthesia Reactions: No Infectious Disease History: No Infectious Disease History: Reports: Hx Shingles Denies: Hx Clostridium Difficile, Hx Hepatitis, Hx Tuberculosis, Hx Known/ Suspected VRE, Hx Known/Suspected VRSA, History Other Infectious Disease, Traveled Outside the [place] in Last 30 Days - Family History Known Family History: Positive: Diabetes - Mother Family History: FHx of brain tumor (Brother) - Social History Alcohol Use: None Alcohol Amount: 1 beer Hx Substance Use: No Substance Use Type: Reports: None Hx Tobacco Use: Yes Smoking Status (MU): Former Smoker Type: Pipe Review of Systems Positive: Palpitations. Negative: Chest Pain Negative: Shortness Of Breath Neurological: Other - dizziness, lightheadedness All Other Systems Reviewed And Are Negative: Yes Physical Exam - Summary Physical Exam Summary: Constitutional: Well-developed, Well-nourished, Alert. (-) Distressed Skin: Warm, Dry HENT: Normocephalic; Atraumatic Eyes: Conjunctiva normal Neck: Musculoskeletal ROM normal neck. (-) JVD, (-) Stridor, (-) Tracheal deviation Cardio: Rhythm irregular in a variable block, rate bradycardic, Heart sounds normal; Intact distal pulses; The pedal pulses are 2+ and symmetric. Radial pulses are 2+, strong, and symmetric. Pulmonary/Chest wall: Effort normal. (-) Respiratory distress, (-) Wheezes, (-) Rales Abd: Soft, (-) tenderness, (-) Distension, (-) Guarding, (-) Rebound Musculoskeletal: (-) Edema Neuro: Alert, Oriented x3 Psych: Mood and affect Normal Triage Information Reviewed: Yes Vital Signs On Initial Exam: Initial Vitals Temp Pulse Resp BP Pulse Ox 96.7 F 42 16 98/56 99 07/10/19 09:30 07/10/19 09:30 07/10/19 09:30 07/10/19 09:30 07/10/19 09:30 Vital Signs Reviewed: Yes Procedures - Sedation Patient Received Moderate/Deep Sedation with Procedure: No Diagnostics - Vital Signs Vital Signs Temp Pulse Resp BP Pulse Ox 07/10/19 10:00 45 14 98 07/10/19 09:42 45 22 105/65 96 07/10/19 09:32 11 07/10/19 09:30 96.7 F 42 16 98/56 99 - Laboratory Lab Results: Lab Results 07/10/19 Range/Units 09:49 WBC 4.8 (3.5-10.8) 10^3/uL RBC 4.66 (4.18-5.48) 10^6 /uL Hgb 15.1 (14.0-18.0) g/dL Hct 44 (42-52) % MCV 95 H (80-94) fL MCH 32 H (27-31) pg MCHC 34 (31-36) g/dL RDW 13 (10-15) % Plt Count 202 (150-450) 10^3/uL MPV 8.8 (7.4-10.4) fL Neut % (Auto) 66.0 % Lymph % (Auto) 17.3 % Trinity % (Auto) 11.7 % Eos % (Auto) 4.0 % Baso % (Auto) 1.0 % Absolute Neuts (auto) 3.1 (1.5-7.7) 10^3/ul Absolute Lymphs (auto) 0.8 L (1.0-4.8) 10^3/ul Absolute Monos (auto) 0.6 (0-0.8) 10^3/ul Absolute Eos (auto) 0.2 (0-0.6) 10^3/ul Absolute Basos (auto) 0.0 (0-0.2) 10^3/ul Absolute Nucleated RBC 0.0 10^3/ul Nucleated RBC % 0.2 Result Diagrams: 07/10/19 09:49 07/10/19 09:49 Lab Statement: Any lab studies that have been ordered have been reviewed, and results considered in the medical decision making process. - Radiology CXR Radiology Interpretation Completed By: Radiologist Summary of Radiographic Findings: No active cardiopulmonary disease. ED physician has reviewed this report. - EKG 09 Cardiac Rate: Other Rate - 40bpm EKG Rhythm: Atrial Flutter ST Segment: Normal Ectopy: None Summary of EKG Findings: EKG at 09 shows atrial flutter at 40bpm with variable block and motion at baseline. No STEMI. ED physician has interpreted and reviewed this report. Dizzy Course/Dx - Course Course Of Treatment: Pt is an 84 y/o M presenting to the ED with a chief complaint of dizziness initially onset sometime during the night. Pt states he woke up with dizziness and lightheadedness but went back to sleep. He was on Eliquis but stopped taking it d/t pacemaker placement scheduled for tomorrow. He had some water about an hour [employer], but no food. He denies CP or SOB. On exam , HR is bradycardic, irregular, in a variable block. In the ED course, pt was given 1L of LR. EKG at 0921 shows atrial flutter at 40bpm with variable block and motion at baseline. No STEMI. 47 - I spoke with Dr. Roberts who will be coming to see the pt in the ED. CXR shows no active cardiopulmonary disease. Dr. Roberts will be placing admission orders as of 1105, and he can probably put in a pacemaker around 1500 today. - Diagnoses Provider Diagnoses: Atrial flutter, Symptomatic bradycardia - Provider Notifications Discussed Care Of Patient With: Eulogio Roberts Time Discussed With Above Provider: 11:06 Instructed by Provider To: Admit As Inpatient Discharge ED - Sign-Out/Discharge Documenting (check all that apply): Patient Departure - Discharge Plan Condition: Stable Disposition: ADMITTED TO [facility] - Billing Disposition and Condition Condition: STABLE Disposition: Admitted to [facility] - Attestation Statements Document Initiated by Scribe: Yes Documenting Scribe: Bella Rivera Provider For Whom Marinaibe is Documenting (Include Credential): Lionel Hill MD. Scribe Attestation: IBella, mayitoed for Lionel Hill MD. on 07/10/19 at 1846. Scribe Documentation Reviewed: Yes Provider Attestation: The documentation as recorded by the scribeBella accurately reflects the service I personally performed and the decisions made by me, Lionel Hill MD. Status of Scribe Document: Viewed Consult Consult: [id number] - I spoke with Dr. Roberts about the pt's present condition, he will be coming to evaluate the pt in the ED.
[2019-07-10 10:12] LABS: INR 1.06 (0.82-1.09)
[2019-07-10 10:28] LABS: Albumin/Globulin Ratio 1.9 (1-3); BUN/Creatinine Ratio 15.4 (8-20); Calcium 9.1 mg/dL (8.6-10.3); EGFR African American 82.5 (>60); EGFR Non-African American 68.2 (>60); Globulin 2.1 g/dL (2-4); Potassium 4.3 mmol/L (3.5-5.0); Total Bilirubin 0.6 mg/dL (0.2-1.0); Total Protein 6.1 g/dL (6.4-8.9)
[2019-07-10] MEDS ORDERED: ceFAZolin 2 GM PREMIX in ORs 2 GM/50 ML BAG IVPB ONE (11:11)
[2019-07-10] MEDS ORDERED: Diazepam TAB(*) 5 MG PO ONE ×2 (11:11→15:00)
[2019-07-10] MEDS ORDERED: ceFAZolin 1 GM/10 ML flush(*) SYRINGE for pocket flush (cardiology) FLUSH ONE (11:11)
[2019-07-10] MEDS ORDERED: Saline FLUSH-PERIPHERAL* 10 ML SYRINGE PERIPH SCH (12:00)
[2019-07-10] MEDS ORDERED: ceFAZolin VIAL 1 GM in NS *SYRINGE * * 10 ML ONE ×2 (12:00→15:00)
[2019-07-10] MEDS: NS 0.9% 1000 ML** 1,000 ML IV SCH ×2 (12:20→20:20)
[2019-07-10] MEDS ORDERED: Lidocaine 1% INJ* 10 MG/ML 30 ML SDV ONE (15:22)
[2019-07-10] MEDS ORDERED: fentaNYL* 50 MCG/ML 2 ML VIAL (100 MCG VIAL) ONE (15:44)
[2019-07-10] MEDS ORDERED: Midazolam* 1 MG/ML 5 ML VIAL (5 MG) ONE (15:45)
[2019-07-10] MEDS ORDERED: oxyCODONE/Acetamin 5/325 MG* TAB PO PRN (16:40)
[2019-07-10] MEDS ORDERED: Acetaminophen TAB* 325 MG PO PRN (16:40)
[2019-07-10] MEDS ORDERED: Finasteride TAB* 5 MG PO SCH ×2 (18:00→21:00)
[2019-07-10] MEDS ORDERED: Tamsulosin CAP* 0.4 MG PO SCH ×2 (18:00→21:00)
[2019-07-11] MEDS: ceFAZolin 1 GM ADVAN(*) 1 GM in NS 0.9% 50 ML* 50 ML IVPB SCH ×2 (00:15→07:33)
[2019-07-11] MEDS: NS 0.9% 1000 ML** 1,000 ML IV SCH ×2 (04:46→10:41)
--- NOTE | 2019-07-11 09:09 | OP ---
DATE OF OPERATION: 07/10/19 - ROOM #432 DATE OF : 37 SURGEON: Eulogio redmond MD ANESTHESIA: Local anesthesia with conscious sedation. PRE-OP DIAGNOSES: Sick sinus syndrome, atrial flutter, bradycardia. POST-OP DIAGNOSES: Sick sinus syndrome, atrial flutter, bradycardia. OPERATIVE PROCEDURE: Dual chamber pacemaker implantation. ESTIMATED BLOOD LOSS: Nil. COMPLICATIONS: None. INDICATIONS: The patient is an 84-year-old gentleman with a history of atrial flutter, who has been having episodes of lightheadedness and dizziness. He was found to be in atrial flutter at 40 beats per minute. When he is in sinus rhythm, his heart rate is 60 beats per minute. The patient was scheduled for a pacemaker implantation on 07/11/19; however, he came to the emergency room at 8 o'clock in the morning on 07/10/19 in atrial flutter with a heart rate of 35, feeling dizzy. The patient states he went into atrial flutter at 5 o'clock in the morning. The patient had been off of his anticoagulation since Wednesday. Permanent pacemaker was recommended. DESCRIPTION OF PROCEDURE: The patient was brought to the procedure room in a fasting state. Informed consent had been obtained prior to the procedure. All labs were reviewed. The patient was placed supine on the procedure table. His left deltopectoral area was cleaned and draped in the usual fashion. 1% lidocaine was used for local anesthesia. Under ultrasound guidance, the axillary vein was entered via Seldinger technique and a guidewire was placed. The second guidewire was placed in the same technique. A 3.5 cm incision was made in the pectoral area and blunt dissection was carried down to the pectoral fascia and a pocket was fashioned for the pacemaker. Over the first guidewire, a 7-American sheath introducer was placed, through which a right ventricular lead was advanced to the right ventricular septum. The right ventricular lead is a Clarituretronic, model 5076, serial number [id number], had an R-wave sensitivity of 5.3, impedance of 1049 ohms, threshold 0.8 volts at 0.5 milliseconds. The ventricular lead was sutured to the pectoral fascia. The patient was given an additional 2 mg of Versed and cardioverted with 100 joules of synchronized biphasic energy. The patient converted to normal sinus rhythm. Over the second guidewire, a 7-American sheath introducer was placed, through which a right atrial lead was advanced to the high right atrium. The right atrial lead is a Medtronic, model 5076, serial number [id number], had a P- wave sensitivity of 3, impedance 554 ohms, threshold 0.9 Volts at 0.5 milliseconds. The atrial lead was sutured to the pectoral fascia. The pocket was flushed. A generator was attached appropriately to the atrioventricular lead. The generator is a MedDr. Z, model number W1DR01, serial number [id number]. The device was placed in the pocket. The surgical incision was closed in 3 layers. The patient was returned to the holding area in stable condition. [id number]/[facility] #: [id number] MTDD
[2019-07-11 11:34] VITALS: BP 120/70
--- NOTE | 2019-07-11 12:25 | DS ---
CC: Dr. Dandre Du * DISCHARGE SUMMARY: DATE OF ADMISSION: 07/10/19 ATTENDING PHYSICIAN: Dr. Eulogio Roberts * (DICTATED BY JOSIAH RAMIREZ NP) PRIMARY PHYSICIAN: Dr. Dandre Du PRIMARY MEAT TRIMMER: Dr. Eulogio Roberts ADMITTING DIAGNOSES: 1. Sick sinus syndrome here for elective dual-chamber pacemaker implantation. 2. History of paroxysmal atrial flutter, CHADS-VASc greater than 2 on Eliquis therapy. 3. History of first-degree atrioventricular block. DISCHARGE DIAGNOSES: 1. Sick sinus syndrome, status post dual-chamber pacemaker implantation, . The patient is to go home with Keflex 250 mg p.o. t.i.d. for a total of 3 days, follow up next week for wound check in addition for consideration of starting flecainide therapy. 2. History of paroxysmal atrial flutter, currently in sinus rhythm per device check in this morning on Eliquis therapy, which is to be resumed today, . PROCEDURES PERFORMED: The patient underwent dual-chamber pacemaker implantation , 07/10/[address] Roberts; per surgical report the right ventricular lead is a Medtronic, model 5076, serial #[id number]. The right atrial lead is Medtronic, model 5076, serial #[id number]. The generator is Medtronic, model #W1DR01, serial #[id number]. COMPLICATIONS: None thus far. COURSE OF HOSPITAL STAY: This is a pleasant 84-year-old male patient with a history of sick sinus syndrome, paroxysmal A. flutter on Eliquis therapy follows with Dr. Eulogio Roberts of our practice. According to an office note from 07/04/19, the patient had an episode of A. flutter with a heart rate in the 30s. He cardioverted to sinus rhythm on his own; however, due to sick sinus syndrome, he was offered a dual-chamber pacemaker implantation. Consideration for starting antiarrhythmic therapy was considered; however, it was felt that it was not safe until once he had a device in situ. Prior to having procedure performed, the patient had the blood work on 07/10/19, white count 4.8, hemoglobin 13.1, hematocrit 44, platelets 202, INR 1.06. Sodium 138 , potassium 4.3, chloride 107, carbon dioxide 26, BUN 16, creatinine 1.04. The patient underwent the above- mentioned procedure. Postprocedure, the patient was transferred to [address] [place] [address] and monitored overnight. There have been no events. Device check from today, 07/11/19 was reviewed. Right atrial pacing threshold was 0.5 volts at 0.4 milliseconds. Right ventricular pacing threshold was 0.5 volts at 0.4 milliseconds. There is no AFib or no VT, normal device function. Delphine was on. This morning's chest x-ray is still pending to rule out pneumothorax. There are no complications. He will go home later today. Device site was inspected. There was no evidence of pocket hematoma. There was scant bright red oozing from the first staple site. No inflammation. Device site was nontender to palpation. Again, no pocket hematoma. Most recent set of vital signs, temperature 98.1, pulse 69, respirations 16, oxygenation 96 % on room air, blood pressure 111/71. We will await this morning's chest x-ray and likely discharge the patient home later today. WOUND CARE: The patient was instructed to change dressing daily. He was advised not to shower until tomorrow, 07/12/19. He is aware to wear left arm immobilizer as directed. He is aware to not lift left arm above the shoulder for at least 6 weeks. He is aware not to lift more than 5 pounds until further directed, not to drive until further directed in followup. DISCHARGE MEDICATIONS: Include: 1. Eliquis 5 mg p.o. b.i.d. first dose to be resumed this evening. 2. Finasteride 5 mg p.o. q.h.s. 3. Flomax 0.4 mg p.o. q.h.s. 4. Keflex 250 mg p.o. t.i.d. for a total of 3 day, which was sent in to his pharmacy at [facility]. FOLLOWUP APPOINTMENT: 1. The patient to see PCP, Dr. Dandre Du in 7 to [address] Eulogio Roberts on 07/18/19 at 12:45. Dr. Eulogio Roberts agrees the above assessment and plan. We will await for this morning chest x-ray and if stable, the patient is to be discharged home in stable condition. JOSIAH RAMIREZ, FILM LABORATORY TECHNICIAN [id number]/[facility] #: [id number] [facility]ITALCoby
== END 2019-07-11 15:47 | disposition home or self-care (01) ==
LOC: ED 09:20 → MEDTELE 11:08 → UNDOADMOB 11:43 → MEDTELE 11:43 → UNDODISOB 07-11 15:47
PROVIDERS: ADMIT Specialist; ATTEND Specialist
DX: I49.5 Sick sinus syndrome (principal); I44.0 Atrioventricular block, first degree; I48.92 Unspecified atrial flutter; Z79.01 Long term (current) use of anticoagulants; Z79.899 Other long term (current) drug therapy; Z87.891 Personal history of nicotine dependence; I45.10 Unspecified right bundle-branch block; R00.1 Bradycardia, unspecified
CPT/HCPCS: 33208; 36415; 71045; 71046; 80053; 84484; 85025; 85610; 93005; 99156; 99157; 99285; A9270-GY; C1785; C1892; C1898; G0378; J0690; J2250; J3010

== ENCOUNTER 2021-01-22 07:22 | Inpatient (IN) ==
[2021-01-22] MEDS ORDERED: NS 0.9% 1000 ml BAG 1,000 ML IV ONE ×2 (07:39→10:01)
[2021-01-22 07:56] LABS: ABS Eosinophils 0.2 10^3/ul (0-0.6); ABS Lymphocytes 1.1 10^3/ul (1.0-4.8); ABS Monocytes 0.5 10^3/ul (0-0.8); ABS Neutrophils 3.2 10^3/ul (1.5-7.7); Eosinophil % 3.2 %; Hematocrit 46 % (42-52); Hemoglobin 15.4 g/dL (14.0-18.0); Lymphocyte % 21.8 %; Mean Corpuscular HGB Conc 34 g/dL (31-36); Mean Corpuscular Hemoglobin 33 pg (27-31); Mean Corpuscular Volume 97 fL (80-94); Nucleated Red Blood Cells % 0.1; Platelet Count 212 10^3/uL (150-450); Red Blood Count 4.72 10^6 /uL (4.18-5.48); Red Cell Distribution Width 13 % (10-15)
[2021-01-22 08:28] LABS: ALT 16 U/L (7-52); AST 24 U/L (13-39); Albumin 3.9 g/dL (3.2-5.2); Albumin/Globulin Ratio 1.7 (1-3); Alkaline Phosphatase 54 U/L (34-104); Anion Gap 8 mmol/L (2-11); Blood Urea Nitrogen 16 mg/dL (6-24); CO2 Carbon Dioxide 24 mmol/L (22-32); Calcium 8.7 mg/dL (8.6-10.3); Chloride 106 mmol/L (101-111); EGFR African American 85.2 (>60); EGFR Non-African American 70.4 (>60); Globulin 2.3 g/dL (2-4); Glucose 121 mg/dL (70-100); Potassium 4.1 mmol/L (3.5-5.0); Sodium 138 mmol/L (135-145); Total Protein 6.2 g/dL (6.4-8.9)
[2021-01-22 09:07] LABS: Troponin I 0.01 ng/mL (<0.03)
[2021-01-22 09:39] LABS: TSH Ultra Thyroid Stim Horm 2.93 mcIU/mL (0.34-5.60)
[2021-01-22 10:41] LABS: C Reactive Protein < 1.00 mg/L (<8.01)
[2021-01-22 11:13] LABS: Urine Appearance Clear; Urine Bilirubin Negative (Negative); Urine Blood Negative (Negative); Urine Color Yellow; Urine Glucose Negative (Negative); Urine Ketones Trace (Negative); Urine Nitrite Negative (Negative); Urine Protein Negative (Negative); Urine Specific Gravity 1.018 (1.002-1.030); Urine Urobilinogen Negative (Negative)
[2021-01-22] MEDS ORDERED: Midazolam 5 mg/5 ml VIAL 1 mg/ml 5 ml VIAL (5 mg) ONE (12:19)
[2021-01-22] MEDS ORDERED: Naloxone 0.4 mg VIAL 0.4 mg/ml 1 ml VIAL ONE (12:19)
[2021-01-22] MEDS ORDERED: Flumazenil 0.5 mg/5 ml 0.1 MG/ML 5 ml VIAL ONE (12:19)
[2021-01-22] MEDS ORDERED: fentaNYL 100 mcg/2 ml 50 MCG/ML VIAL ONE (12:19)
[2021-01-22] MEDS ORDERED: NS 0.9% 1000 ml BAG 1,000 ML IV SCH (12:30)
[2021-01-23] MEDS ORDERED: Lactated Ringers 500 ml BAG 500 ML IV ONE (00:18)
[2021-01-23 04:28] LABS: ABS Eosinophils 0.2 10^3/ul (0-0.6); ABS Lymphocytes 1.3 10^3/ul (1.0-4.8); ABS Monocytes 0.5 10^3/ul (0-0.8); ABS Neutrophils 2.9 10^3/ul (1.5-7.7); Eosinophil % 3.7 %; Hematocrit 39 % (42-52); Mean Corpuscular HGB Conc 33 g/dL (31-36); Mean Corpuscular Hemoglobin 32 pg (27-31); Mean Corpuscular Volume 98 fL (80-94); Mean Platelet Volume 8.7 fL (7.4-10.4); Nucleated Red Blood Cells % 0.1; Platelet Count 180 10^3/uL (150-450); Red Blood Count 4.02 10^6 /uL (4.18-5.48); Red Cell Distribution Width 13 % (10-15); White Blood Count 4.9 10^3/uL (3.5-10.8)
[2021-01-23 04:42] LABS: Calcium 7.8 mg/dL (8.6-10.3); EGFR African American 116.5 (>60); EGFR Non-African American 96.2 (>60); Magnesium 1.9 mg/dL (1.9-2.7); Potassium 3.9 mmol/L (3.5-5.0)
[2021-01-23] MEDS ORDERED: Magnesium Sulfate IV 1GM/100ML 1 GM/100 ML BAG IV ONE (05:29)
[2021-01-23 23:05] LABS: Anaplasma phagocytophilum Negative (Negative); B. miyamotoi PCR, B Negative (Negative); Babesia divergens/MO-1 Negative (Negative); Babesia ducani Negative (Negative); Ehrlichia chaffeensis Negative (Negative); Ehrlichia ewingii/canis Negative (Negative); Ehrlichia muris eauclairensis Negative (Negative)
[2021-01-24 06:25] LABS: ABS Eosinophils 0.2 10^3/ul (0-0.6); ABS Monocytes 0.5 10^3/ul (0-0.8); Eosinophil % 4.2 %; Hematocrit 42 % (42-52); Hemoglobin 14.2 g/dL (14.0-18.0); Lymphocyte % 20.8 %; Mean Corpuscular HGB Conc 34 g/dL (31-36); Mean Corpuscular Hemoglobin 33 pg (27-31); Mean Corpuscular Volume 97 fL (80-94); Mean Platelet Volume 8.9 fL (7.4-10.4); Platelet Count 192 10^3/uL (150-450); Red Blood Count 4.38 10^6 /uL (4.18-5.48); Red Cell Distribution Width 13 % (10-15); White Blood Count 4.8 10^3/uL (3.5-10.8)
[2021-01-24 06:45] LABS: Calcium 8.7 mg/dL (8.6-10.3); EGFR African American 102.5 (>60); EGFR Non-African American 84.7 (>60); Potassium 3.8 mmol/L (3.5-5.0)
[2021-01-24 11:50] VITALS: BP 129/83
== END 2021-01-24 12:52 | disposition home or self-care (01) | DRG 310 ==
LOC: ED 07:22 → MEDTELE 07:22 → OBSVTOIN 12:38 → ICU 13:21 → MEDTELE 01-23 12:16
PROVIDERS: ADMIT Internal Medicine; ATTEND Student in an Organized Health Care Education/Training Program
PROC: CARDVER (ICD-10-PCS; 2021-01-22 12:50)